=== PATIENT | female | born 1935 | race Two or more races ===

== ENCOUNTER 2017-11-07 21:30 | Inpatient (IN) | payer MEDICARE, MEDICAID ==
[~2017-11-07] VITALS: Ht 154.9 cm; Wt 57.6 kg
[~2017-11-07 21:30] MED LIST: ASPIRIN81 MG ORAL; BENAZEPRIL HCL10 MG ORAL; FERROUS SULFAT325 MG ORAL; GLIMEPIRIDE4 MG ORAL; GLIPIZIDE5 MG ORAL; GLYBURIDE-METF1 EAC1 PO; HECTOROL0.5 MCG PO; JANUVIA50 MG ORAL; LEVEMIR FL100 UNIT/1 SUBQ; LIPITOR80 MG ORAL; LOSARTAN-HCTZ1 EAC1 ORAL; NORVASC5 MG ORAL; OYSCO-500500 M1 PO; PENTOXIFYLLINE400 MG PO; PROBIOTIC1 EAC5 PO; RANITIDINE HCL150 MG ORAL; SIMVASTATIN5 MG ORAL; SODIUM BICARBO650 MG PO; TRADJENTA5 MG PO; VICODIN 5-5001 EACH ORAL; VITAMIN B122500 MCG PO
[2017-11-07] MEDS ORDERED: COZAAR50 MG ORAL (22:17)
[2017-11-07] MEDS ORDERED: FERROUS SULFAT325 MG ORAL (22:17)
[2017-11-07] MEDS ORDERED: TRADJENTA5 MG PO (22:17)
[2017-11-07] MEDS ORDERED: AMLODIPINE BESY10 MG ORAL (22:17)
[2017-11-07] MEDS ORDERED: TAMSULOSIN HCL0.4 MG ORAL (22:17)
[2017-11-07] MEDS ORDERED: DOCUSATE SODIU100 MG ORAL (22:17)
[2017-11-07 22:35] LABS: HEMATOCRIT 21.7 % (37.0-47.0); MEAN CORPUSCULAR VOLUME 100 FL (80-99); PLATELET COUNT 159 K/UL (150-450); RED BLOOD COUNT 2.18 M/UL (4.20-5.40); RED CELL DISTRIBUTION WIDTH 12.6 % (11.6-14.8); WHITE BLOOD COUNT 5.6 K/UL (4.8-10.8)
[2017-11-07] MEDS ORDERED: Miralax 17gm pkt ORAL PRN (22:45)
[2017-11-07] MEDS ORDERED: Albuterol/Ipratropium 3ml neb HHN PRN (22:45)
[2017-11-07] MEDS ORDERED: Zolpidem 5mg tab ORAL PRN (22:45)
[2017-11-07] MEDS ORDERED: Morphine Sulfate 2mg/ml Inj IVP PRN (22:45)
[2017-11-07] MEDS ORDERED: Mylanta II UD 30ml ORAL PRN (22:45)
[2017-11-07 22:56] LABS: ALANINE AMINOTRANSFERASE 14 U/L (12-78); ALBUMIN 3.4 G/DL (3.4-5.0); ALBUMIN/GLOBULIN RATIO 0.9 (1.0-2.7); ALKALINE PHOSPHATASE 131 U/L (46-116); ANION GAP 9 mmol/L (5-15); ASPARTATE AMINO TRANSFERASE 18 U/L (15-37); BILIRUBIN,TOTAL 0.3 MG/DL (0.2-1.0); BLOOD UREA NITROGEN 50 mg/dL (7-18); CALCIUM 8.3 MG/DL (8.5-10.1); CARBON DIOXIDE 19 MMOL/L (21-32); CHLORIDE 103 MMOL/L (98-107); CKMB 1.9 NG/ML (0.0-3.6); CREATINE KINASE 84 U/L (26-308); CREATININE 2.4 MG/DL (0.55-1.30); SODIUM 130 MMOL/L (136-145)
[2017-11-07 23:44] VITALS: BP 162/43
[2017-11-08] VITALS (7 sets, daily range): BP systolic 152–166; BP diastolic 42–81
--- NOTE | 2017-11-08 01:10 | Emergency Room Report ---
History of Present Illness General Chief Complaint: Abnormal Labs Source: Family Member Present Illness HPI 82-year-old female presents ED for evaluation. Daughter at bedside states that patient was referred here for abnormal labs. Had blood work done by PMD yesterday. Was called today stating that her hemoglobin was low and her potassium is high. Patient states she feels okay. Denies any fevers or chills. Denies any weakness. Denies chest pain or shortness of breath. Denies any dizziness. No other aggravating or relieving factors. Denies any other associated symptoms Allergies: Coded Allergies: No Known Allergies (Unverified , 05/29/13) Patient History Past Medical History: DM, HTN Past Surgical History: none Pertinent Family History: none Social History: Denies: smoking, alcohol use, drug use Now: No Immunizations: UTD Reviewed Nursing Documentation: PMH: Agreed, PSxH: Agreed Nursing Documentation-PMH Past Medical History: No History, Except For Hx Cardiac Problems: Yes Hx Hypertension: Yes Hx Diabetes: Yes - Type 2 Hx Cancer: No Hx Gastrointestinal Problems: No Hx Neurological Problems: No Review of Systems All Other Systems: negative except mentioned in HPI Physical Exam Vital Signs Date Time Temp Pulse Resp B/P (MAP) Pulse Ox O2 Delivery O2 Flow Rate FiO2 11/07/17 21:42 98.2 85 16 164/50 97 Room Air Sp02 EP Interpretation: reviewed, normal General Appearance: no apparent distress, alert, GCS 15, non-toxic Head: normocephalic, atraumatic Eyes: bilateral eye normal inspection, bilateral eye PERRL ENT: hearing grossly normal, normal pharynx, no angioedema, normal voice Neck: full range of motion, supple/symm/no masses Respiratory: chest non-tender, lungs clear, normal breath sounds, speaking full sentences Cardiovascular #1: regular rate, rhythm, no edema Cardiovascular #2: 2+ carotid (R), 2+ carotid (L), 2+ radial (R), 2+ radial (L) , 2+ dorsalis pedis (R), 2+ dorsalis pedis (L) Gastrointestinal: normal bowel sounds, non tender, soft, non-distended, no guarding, no rebound Rectal: deferred Genitourinary: normal inspection, no CVA tenderness Musculoskeletal: back normal, gait/station normal, normal range of motion, non- tender Neurologic: alert, oriented x3, responsive, motor strength/tone normal, sensory intact, speech normal Psychiatric: judgement/insight normal, memory normal, mood/affect normal, no suicidal/homicidal ideation Reflexes: 3+ bicep (R), 3+ bicep (L), 3+ tricep (R), 3+ tricep (L), 3+ knee (R) , 3+ knee (L) Skin: normal color, no rash, warm/dry, well hydrated Lymphatic: no adenopathy Medical Decision Making Diagnostic Impression: Primary Impression: Anemia Qualified Codes: D64.9 - Anemia, unspecified Additional Impressions: Hyperkalemia, diminished renal excretion Acute on chronic renal failure Qualified Codes: N17.9 - Acute kidney failure, unspecified; N18.9 - Chronic kidney disease, unspecified ER Course Hospital Course 82-year-old female referred here for low hemoglobin and high potassium Differential diagnoses include: OR/unstable angina, V. tach, bradycardia, hyperkalemia, fluid overload Clinical course Patient placed on stretcher. on hospital monitor. After initial history and physical I ordered labs, EKG labs reviewed- potassium 6.0. BUN/Cr elevated. Hemoglobin/hematocrit 7/21.7. Given insulin/D50. No EKG dynamic changes requiring calcium. Blood ordered. Case discussed with Dr. Stevens and he agreed to accept the patient to his service for further care and support I. I feel this is a highly complex case requiring extensive working including EKG/Rhythm strip, Xray/CT/US, Blood/urine lab work, repeat exams while in ED, and administration of strong opiates/narcotics for pain control, admission to hospital or close patient follow up. Diagnosis - hyperkalemia, anemia, acute on chronic kidney disease Admitted to telemetry in serious condition Labs Test 11/07/17 22:10 White Blood Count 5.6 K/UL (4.8-10.8) Red Blood Count 2.18 M/UL (4.20-5.40) Hemoglobin 7.0 G/DL (12.0-16.0) Hematocrit 21.7 % (37.0-47.0) Mean Corpuscular Volume 100 FL (80-99) Mean Corpuscular Hemoglobin 32.3 PG (27.0-31.0) Mean Corpuscular Hemoglobin Concent 32.4 G/DL (32.0-36.0) Red Cell Distribution Width 12.6 % (11.6-14.8) Platelet Count 159 K/UL (150-450) Mean Platelet Volume 7.1 FL (6.5-10.1) Neutrophils (%) (Auto) % (45.0-75.0) Lymphocytes (%) (Auto) % (20.0-45.0) Monocytes (%) (Auto) % (1.0-10.0) Eosinophils (%) (Auto) % (0.0-3.0) Basophils (%) (Auto) % (0.0-2.0) Differential Total Cells Counted 100 Neutrophils % (Manual) 50 % (45-75) Lymphocytes % (Manual) 35 % (20-45) Monocytes % (Manual) 6 % (1-10) Eosinophils % (Manual) 7 % (0-3) Basophils % (Manual) 2 % (0-2) Band Neutrophils 0 % (0-8) Platelet Estimate Adequate Platelet Morphology Normal Hypochromasia 1+ Anisocytosis 1+ Prothrombin Time 10.7 SEC (9.30-11.50) Prothromb Time International Ratio 1.0 (0.9-1.1) Activated Partial Thromboplast Time 31 SEC (23-33) Sodium Level 130 MMOL/L (136-145) Potassium Level 6.0 MMOL/L (3.5-5.1) Chloride Level 103 MMOL/L (98-107) Carbon Dioxide Level 19 MMOL/L (21-32) Anion Gap 9 mmol/L (5-15) Blood Urea Nitrogen 50 mg/dL (7-18) Creatinine 2.4 MG/DL (0.55-1.30) Estimat Glomerular Filtration Rate mL/min (>60) Glucose Level 186 MG/DL (74-106) Calcium Level 8.3 MG/DL (8.5-10.1) Total Bilirubin 0.3 MG/DL (0.2-1.0) Aspartate Amino Transf (AST/SGOT) 18 U/L (15-37) Alanine Aminotransferase (ALT/SGPT) 14 U/L (12-78) Alkaline Phosphatase 131 U/L (46-116) Total Creatine Kinase 84 U/L (26-308) Creatine Kinase MB 1.9 NG/ML (0.0-3.6) Creatine Kinase MB Relative Index 2.2 Troponin I < 0.017 ng/mL (0.000-0.056) Pro-B-Type Natriuretic Peptide 6117 pg/mL (0-125) Total Protein 7.0 G/DL (6.4-8.2) Albumin 3.4 G/DL (3.4-5.0) Globulin 3.6 g/dL Albumin/Globulin Ratio 0.9 (1.0-2.7) EKG Diagnostic Results Rate: normal Rhythm: NSR ST Segments: no acute changes ASA given to the pt in ED: No Rhythm Strip Diag. Results EP Interpretation: yes Rhythm: NSR, no PVC's, no ectopy Chest X-Ray Diagnostic Results Chest X-Ray Diagnostic Results : Chest X-Ray Ordered: Yes # of Views/Limited/Complete: 1 View Indication: Other EP Interpretation: Yes Interpretation: no pneumothorax, no acute cardiopulmonary disease, other - bilateral insterstitial changes Impression: Other - cardiomegaly Electronically Signed by: Electronically signed by Jon Curtis MD Last Vital Signs Date Time Temp Pulse Resp B/P (MAP) Pulse Ox O2 Delivery O2 Flow Rate FiO2 11/07/17 23:44 97.7 81 24 162/43 100 Room Air Status: improved Disposition: ADMITTED INPATIENT Condition: Serious Referrals: NOT CHOSEN MITALI/,REFERRING (PCP) JON CURTIS M.D. Nov 08, 2017 01:10
[2017-11-08] MEDS: NovoLOG Insulin Flexpen SUBQ SCH ×4 (06:30→21:23)
[2017-11-08] MEDS: sitaGLIPtin 50mg tab ORAL SCH (07:03)
--- NOTE | 2017-11-08 08:26 | History and Physical ---
History of Present Illness General Date patient seen: Nov 08, 2017 Reason for Hospitalization: Abnormal Labs Present Illness HPI 82-year-old female with hx of HTN, DM presented to ED for evaluation of abnormal labs. Had blood work done by PMD showed that her hemoglobin was low and her potassium is high. Patient states she feels okay. Denies any fevers or chills. Denies any weakness. Denies chest pain or shortness of breath. Denies any dizziness. No other aggravating or relieving factors. Allergies: Coded Allergies: No Known Allergies (Unverified , 05/29/13) Medication History Scheduled Amlodipine Besylate (Norvasc), 5 MG ORAL BID Amlodipine Besylate* (Amlodipine Besylate*), 10 MG ORAL DAILY, (Reported) Aspirin* (Aspirin*), 81 MG ORAL DAILY, (Reported) Atorvastatin (Lipitor), 80 MG ORAL DAILY, (Reported) Calcium Carbonate (Oysco-500), 500 MG PO BID, (Reported) Ferrous Sulfate* (Ferrous Sulfate*), 325 MG ORAL THREE TIMES A DAY, (Reported) Ferrous Sulfate* (Ferrous Sulfate*), 325 MG ORAL TWICE A DAY, (Reported) Glimepiride* (Glimepiride*), 4 MG ORAL DAILY, (Reported) Glipizide* (Glipizide*), 5 MG ORAL BIDAC, (Reported) Linagliptin (Tradjenta), 5 MG PO DAILY, (Reported) Linagliptin (Tradjenta), 5 MG PO DAILY, (Reported) Losartan Potassium* (Cozaar*), 100 MG ORAL DAILY, (Reported) Losartan/Hydrochlorothiazide (Losartan-Hctz 100-25 Mg Tab), 1 TAB ORAL DAILY, ( Reported) Pentoxifylline* (Trental*), 400 MG PO TID, (Reported) Ranitidine Hcl* (Zantac*), 150 MG ORAL BEDTIME Simvastatin (Zocor), 5 MG ORAL BEDTIME, (Reported) Sitagliptin (Januvia), 50 MG ORAL ACBREAKFAST Sodium Bicarbonate* (Nahco3*), 650 MG PO TID, (Reported) Tamsulosin Hcl (Tamsulosin Hcl*), 0.4 MG ORAL BEDTIME, (Reported) Scheduled PRN Hydrocodone/Acetaminophen 5-500 (Vicodin 5-500), 1 TAB ORAL Q8H PRN for For Pain Miscellaneous Medications Cyanocobalamin (Vitamin B-12) (Vitamin B12), 500 MCG PO, (Reported) Docusate Sodium* (Docusate Sodium*), 100 MG ORAL, (Reported) Doxercalciferol (Hectorol), 0.5 MCG PO, (Reported) Insulin Detemir (Levemir Flexpen), 0 SUBQ, (Reported) Lactobacillus Combo No.11 (Probiotic), 1 EACH PO, (Reported) Patient History Healthcare decision maker Resuscitation status Full Code Advanced Directive on File Past Medical/Surgical History Past Medical/Surgical History: (1) HTN (hypertension) (2) Diabetic nephropathy (3) Elevated CEA Review of Systems Constitutional: Reports: malaise, weakness All Other Systems: negative except mentioned in HPI Physical Exam General Appearance: WD/WN Lines, tubes and drains: peripheral HEENT: normocephalic, atraumatic Neck: non-tender, normal alignment Respiratory/Chest: chest wall non-tender, lungs clear Breasts: no masses Cardiovascular/Chest: normal peripheral pulses, normal rate Abdomen: normal bowel sounds, soft Genitourinary/Rectal: normal genital exam Extremities: normal range of motion 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 Last 24 Hour Vital Signs Date Time Temp Pulse Resp B/P (MAP) Pulse Ox O2 Delivery O2 Flow Rate FiO2 11/08/17 08:00 97.3 80 18 158/73 95 Room Air 11/08/17 03:30 98.2 81 21 165/81 98 Room Air 11/08/17 03:20 97.7 80 19 163/52 100 Room Air 11/08/17 03:05 98.2 81 21 11/08/17 03:05 98.2 81 21 165/81 98 Room Air 11/08/17 01:22 77 15 152/42 100 Room Air 11/07/17 23:44 97.7 81 24 162/43 100 Room Air 11/07/17 21:42 98.2 85 16 164/50 97 Room Air Intake and Output 11/07/17 11/08/17 19:00 07:00 Output Total 0 ml Balance 0 ml Output Urine Total 0 ml # Voids 1 Laboratory Tests Test 11/07/17 22:10 White Blood Count 5.6 K/UL (4.8-10.8) Red Blood Count 2.18 M/UL (4.20-5.40) L Hemoglobin 7.0 G/DL (12.0-16.0) L Hematocrit 21.7 % (37.0-47.0) L Mean Corpuscular Volume 100 FL (80-99) H Mean Corpuscular Hemoglobin 32.3 PG (27.0-31.0) H Mean Corpuscular Hemoglobin Concent 32.4 G/DL (32.0-36.0) Red Cell Distribution Width 12.6 % (11.6-14.8) Platelet Count 159 K/UL (150-450) Mean Platelet Volume 7.1 FL (6.5-10.1) Neutrophils (%) (Auto) % (45.0-75.0) Lymphocytes (%) (Auto) % (20.0-45.0) Monocytes (%) (Auto) % (1.0-10.0) Eosinophils (%) (Auto) % (0.0-3.0) Basophils (%) (Auto) % (0.0-2.0) Differential Total Cells Counted 100 Neutrophils % (Manual) 50 % (45-75) Lymphocytes % (Manual) 35 % (20-45) Monocytes % (Manual) 6 % (1-10) Eosinophils % (Manual) 7 % (0-3) H Basophils % (Manual) 2 % (0-2) Band Neutrophils 0 % (0-8) Platelet Estimate Adequate Platelet Morphology Normal Hypochromasia 1+ Anisocytosis 1+ Prothrombin Time 10.7 SEC (9.30-11.50) Prothromb Time International Ratio 1.0 (0.9-1.1) Activated Partial Thromboplast Time 31 SEC (23-33) Sodium Level 130 MMOL/L (136-145) L Potassium Level 6.0 MMOL/L (3.5-5.1) *H Chloride Level 103 MMOL/L (98-107) Carbon Dioxide Level 19 MMOL/L (21-32) L Anion Gap 9 mmol/L (5-15) Blood Urea Nitrogen 50 mg/dL (7-18) H Creatinine 2.4 MG/DL (0.55-1.30) H Estimat Glomerular Filtration Rate mL/min (>60) Glucose Level 186 MG/DL (74-106) H Calcium Level 8.3 MG/DL (8.5-10.1) L Total Bilirubin 0.3 MG/DL (0.2-1.0) Aspartate Amino Transf (AST/SGOT) 18 U/L (15-37) Alanine Aminotransferase (ALT/SGPT) 14 U/L (12-78) Alkaline Phosphatase 131 U/L (46-116) H Total Creatine Kinase 84 U/L (26-308) Creatine Kinase MB 1.9 NG/ML (0.0-3.6) Creatine Kinase MB Relative Index 2.2 Troponin I < 0.017 ng/mL (0.000-0.056) Pro-B-Type Natriuretic Peptide 6117 pg/mL (0-125) H Total Protein 7.0 G/DL (6.4-8.2) Albumin 3.4 G/DL (3.4-5.0) Globulin 3.6 g/dL Albumin/Globulin Ratio 0.9 (1.0-2.7) L Height (Feet): 5 Height (Inches): 1.00 Weight (Pounds): 127 Medications Current Medications Medications (Trade) Dose Ordered Sig/Murali Route PRN Reason Start Time Stop Time Status Last Admin Dose Admin Acetaminophen (Tylenol) 650 mg Q4H PRN ORAL fever 11/07/17 22:45 12/07/17 22:44 Al Hydroxide/Mg Hydroxide (Mylanta II) 30 ml Q6H PRN ORAL dyspepsia 11/07/17 22:45 12/07/17 22:44 Albuterol/ Ipratropium (Albuterol/ Ipratropium) 3 ml Q6HRT PRN HHN dyspnea 11/07/17 22:45 11/12/17 22:44 Amlodipine Besylate (Norvasc) 5 mg BID ORAL 11/08/17 09:00 12/08/17 08:59 Aspirin (ASA) 81 mg DAILY ORAL 11/08/17 09:00 12/08/17 08:59 Clonidine HCl (Catapres Tab) 0.1 mg Q4H PRN ORAL For High Blood Pressure 11/07/17 22:45 12/07/17 22:44 Dextrose (Dextrose 50%) STAT PRN IV Hypoglycemia 11/07/17 22:45 12/07/17 22:44 Dextrose (Dextrose 50%) STAT PRN IV Hypoglycemia 11/07/17 22:45 12/07/17 22:44 Heparin Sodium (Porcine) (Heparin 5000 units/ml) 5,000 units EVERY 12 HOURS SUBQ 11/08/17 09:00 12/08/17 08:59 Insulin Aspart (NovoLOG) BEFORE MEALS AND HS SUBQ 11/08/17 06:30 12/08/17 06:29 Morphine Sulfate (Morphine Sulfate) 1 mg EVERY 4 HOURS PRN IVP For Pain 11/07/17 22:45 11/14/17 22:44 Ondansetron HCl (Zofran) 4 mg Q6H PRN IVP Nausea & Vomiting 11/07/17 22:45 12/07/17 22:44 Polyethylene Glycol (Miralax) 17 gm HSPRN PRN ORAL Constipation 11/07/17 22:45 12/07/17 22:44 Sitagliptin Phosphate (Januvia) 50 mg ACBREAKFAST ORAL 11/08/17 06:30 12/08/17 06:29 11/08/17 07:03 Sodium Polystyrene Sulfonate (Kayexalate) 45 gm DAILY ORAL 11/08/17 09:00 11/11/17 08:59 Tamsulosin HCl (Flomax) 0.4 mg BEDTIME ORAL 11/08/17 21:00 12/08/17 20:59 Zolpidem Tartrate (Ambien) 5 mg HSPRN PRN ORAL Insomnia 11/07/17 22:45 11/14/17 22:44 Assessment/Plan Problem List: (1) Acute on chronic renal failure ICD Codes: N17.9 - Acute kidney failure, unspecified; N18.9 - Chronic kidney disease, unspecified SNOMED: 142033936 Qualifiers: Qualified Codes: N17.9 - Acute kidney failure, unspecified; N18.9 - Chronic kidney disease, unspecified (2) Anemia ICD Codes: D64.9 - Anemia, unspecified SNOMED: 159390947 Qualifiers: Qualified Codes: D64.9 - Anemia, unspecified (3) ATN (acute tubular necrosis) ICD Codes: N17.0 - Acute kidney failure with tubular necrosis SNOMED: 65435454 (4) Diabetic nephropathy ICD Codes: E11.21 - Type 2 diabetes mellitus with diabetic nephropathy SNOMED: 424164660 (5) Elevated CEA ICD Codes: R97.0 - Elevated carcinoembryonic antigen [CEA] SNOMED: 00849411, 598143368 Assessment/Plan rule out GI bleeding kayexalate, IV fluids renal US OB of stool prbc as needed sliding scale and diabetic diet dvt porphylaxis JM COLON Nov 08, 2017 08:26
[2017-11-08] MEDS: Aspirin Baby 81mg ORAL SCH (08:56)
[2017-11-08] MEDS: Heparin 5000 units/ml inj SUBQ SCH ×2 (08:59→21:00)
[2017-11-08] MEDS ORDERED: Sodium Polystyrene Sulfonate 15gm Powder ORAL SCH (09:00)
--- NOTE | 2017-11-08 10:04 | Diagnostic Imaging Report ---
Indication: Pain Technique: XRAY Chest 1v Comparison: 06/02/2016 Findings: Heart is enlarged. Atherosclerotic calcifications noted in the aorta. There is mild interstitial prominence. There is suggestion of bronchial thickening. There is linear atelectasis/scarring in the left lower lung peripherally. There is patchy opacity at the left base. There is blunting of the left costophrenic sulcus. No pneumothorax. Degenerative changes are noted in the spine. No acute osseous abnormality appreciated. Impression: Cardiomegaly. Mild interstitial prominence with suggestion of bronchial wall thickening. Patchy left basilar opacities centimeters atelectasis. Developing pneumonia is not entirely excluded. Clinical correlation and follow-up exam recommended. Study obtained via the emergency department however patient admitted to the hospital at time of dictation of the final report.
--- NOTE | 2017-11-08 11:46 | Consultation ---
Consult Note Consult Note asked to eval for renal failure- 82-year-old female presents ED for evaluation. Daughter at bedside states that patient was referred here for abnormal labs. Had blood work done by PMD yesterday. Was called today stating that her hemoglobin was low and her potassium is high. Patient states she feels okay. Denies any fevers or chills. Denies any weakness. Denies chest pain or shortness of breath. Denies any dizziness. No other aggravating or relieving factors. Denies any other associated symptoms Past Medical History: DM, HTN Hx Cardiac Problems: Yes Hx Hypertension: Yes Hx Diabetes: Yes - Type 2 patient interviewed via daughters data reviewed examined discussed with RN . Assessment/Plan Status: Diabetic nephropathy CKD , Cr 1.9 .....(2 years ago) HTN (hypertension) Sever Anemia Acute on chronic renal failure HypoNatremia Plan: Sims 2D echo Kidney ALESSANDRA urine studies- avoid Nephrotoxics Monitor renal parameters LARA WILSON Nov 08, 2017 11:46
[2017-11-08 13:39] LABS: APPEARANCE,URINE SLIGHTLY CLOUDY; COLOR,URINE PALE YELLOW
[2017-11-08 13:40] LABS: BILIRUBIN, URINE NEGATIVE (NEGATIVE); GLUCOSE, URINE (UA) NEGATIVE (NEGATIVE); KETONES,URINE NEGATIVE (NEGATIVE); NITRITE,URINE NEGATIVE (NEGATIVE); PH,URINE 6.5 (4.5-8.0); PROTEIN,URINE 3+ (NEGATIVE)
[2017-11-08 13:41] LABS: LEUKOCYTE ESTERASE ,URINE 2+ (NEGATIVE); UROBILINOGEN,URINE NORMAL MG/DL (0.0-1.0)
--- NOTE | 2017-11-08 14:21 | Cardiology Report ---
APPROVED REPORT EXAM: Two-dimensional and M-mode echocardiogram with Doppler and color Doppler. INDICATION Congestive Heart Failure M-Mode DIMENSIONS IVSd1.4 (0.7-1.1cm)Left Atrium (MM)4.5 (1.6-4.0cm) LVDd5.0 (3.5-5.6cm)Aortic Root3.5 (2.0-3.7cm) PWd1.6 (0.7-1.1cm)Aortic Cusp Exc.1.7 (1.5-2.0cm) IVSs1.9 cm LVDs3.4 (2.5-4.0cm) PWs1.7 cm Normal left ventricular chamber size, systolic function and wall motion. Left ventricular ejection fraction estimated to be 60-65 %. Mild left ventricular hypertrophy by 2-D. No evidence of pericardial effusion Mild Left atrial enlargement. Right cardiac chamber sizes are within normal limits. Focal aortic valve sclerosis with adequate cusp excursion. Thickened mitral valve leaflets with normal excursion. Mitral annulus and aortic root calcification. Normal pulmonic valve structure . Normal tricuspid valve structure. Subcostal views are not obtained due to pts hernia . A color flow and spectral Doppler study was performed and revealed: Trace aortic regurgitation. Mild to moderate mitral regurgitation. Normal left ventricular diastolic function . Trace tricuspid regurgitation. Tricuspid systolic velocities suggests peak right ventricular systolic pressure of 25 mmHg No Pulmonic regurgitation present.
[2017-11-08] MEDS ORDERED: NS 500ML ONE (16:37)
[2017-11-08] MEDS ORDERED: Tubing IV Secondary IV ONE (16:37)
[2017-11-08 16:38] LABS: BASOPHILS % (AUTO) 1.8 % (0.0-2.0); EOSINOPHILS % (AUTO) 4.9 % (0.0-3.0); HEMATOCRIT 28.1 % (37.0-47.0); HEMOGLOBIN 9.7 G/DL (12.0-16.0); LYMPHOCYTES % (AUTO) 26.6 % (20.0-45.0); MEAN CORPUSCULAR VOLUME 96 FL (80-99); MONOCYTES % (AUTO) 8.5 % (1.0-10.0); NEUTROPHILS % (AUTO) 58.2 % (45.0-75.0); PLATELET COUNT 132 K/UL (150-450); RED BLOOD COUNT 2.92 M/UL (4.20-5.40)
[2017-11-08 17:08] LABS: ALANINE AMINOTRANSFERASE 12 U/L (12-78); ALBUMIN 3.1 G/DL (3.4-5.0); ALBUMIN/GLOBULIN RATIO 0.8 (1.0-2.7); ALKALINE PHOSPHATASE 99 U/L (46-116); ANION GAP 11 mmol/L (5-15); ASPARTATE AMINO TRANSFERASE 21 U/L (15-37); BILIRUBIN,TOTAL 0.6 MG/DL (0.2-1.0); BLOOD UREA NITROGEN 43 mg/dL (7-18); CALCIUM 7.9 MG/DL (8.5-10.1); CARBON DIOXIDE 16 MMOL/L (21-32); CHLORIDE 107 MMOL/L (98-107); CHOLESTEROL 82 MG/DL (< 200); CREATININE 2.1 MG/DL (0.55-1.30); HDL CHOLESTEROL 42 MG/DL (40-60); POTASSIUM 5.4 MMOL/L (3.5-5.1); SODIUM 134 MMOL/L (136-145); TRIGLYCERIDES 54 MG/DL (30-150)
[2017-11-08] MEDS ORDERED: Tamsulosin 0.4mg cap ORAL SCH (21:00)
--- NOTE | 2017-11-08 21:15 | Consultation ---
DATE OF CONSULTATION: 11/08/2017 ENDOCRINOLOGY CONSULTATION REFERRING PHYSICIAN: Flora Stevens M.D. REASON FOR CONSULTATION: Diabetic management. HISTORY OF PRESENT ILLNESS: The patient is an 82-year-old female with history of diabetes and chronic kidney disease. Diabetes as an outpatient managed by Tradjenta and glimepiride. She presents to the hospital with abnormal lab hyperkalemia with potassium of 6 and severe anemia. The patient was admitted with observation and treatment and I was called to manage diabetes. PAST MEDICAL HISTORY: 1. Type 2 diabetes. 2. Hypertension. 3. CKD. MEDICATIONS AT HOME: Reviewed and reconciled. ALLERGIES TO MEDICATIONS: None. REVIEW OF SYSTEMS: As per history of present illness. PHYSICAL EXAMINATION: GENERAL: She is awake and alert. VITAL SIGNS: Blood pressure 158/73, heart rate 80, respiratory rate 18, and temperature of 97.3 degrees. HEENT: Pupils are equal and reactive to light. Sclerae anicteric. NECK: No JVD. HEART: Regular. LUNGS: Clear. ABDOMEN: Positive bowel sounds. EXTREMITIES: Trace edema. LABORATORY VALUES: WBC 5, hemoglobin 7, hematocrit 21, and platelets of 159,000. Sodium 130, potassium 6, chloride 103, bicarbonate 19, BUN 50, creatinine 3.4, and glucose 186. DIAGNOSES: 1. Anemia. 2. Hyperkalemia. 3. Diabetes. 4. Chronic kidney disease. PLAN: 1. Discontinue sulfonylurea. 2. Continue Januvia 50 mg renal dose. 3. Continued insulin sliding scale. 4. Further adjustment according to blood glucose values. Thank you, Dr. Stevens for the courtesy of this consultation. Solo Lombardi M.D. DR: Dez JOB#: [id number] CC: JUAN
[2017-11-09] VITALS: BP 150/70
[2017-11-09 04:00] VITALS: BP 161/77
[2017-11-09] MEDS: sitaGLIPtin 50mg tab ORAL SCH (06:28)
[2017-11-09] MEDS: NovoLOG Insulin Flexpen SUBQ SCH ×4 (06:30→21:42)
[2017-11-09 08:00] VITALS: BP 153/70
--- NOTE | 2017-11-09 08:04 | General Progress Note ---
Assessment/Plan Problem List: (1) Abnormal thyroid blood test ICD Codes: R94.6 - Abnormal results of thyroid function studies SNOMED: 932407323 (2) Diabetes ICD Codes: E11.9 - Type 2 diabetes mellitus without complications SNOMED: 45625420 (3) ACS (acute coronary syndrome) ICD Codes: I24.9 - Acute ischemic heart disease, unspecified SNOMED: 310632794 (4) HTN (hypertension) ICD Codes: I10 - Essential (primary) hypertension SNOMED: 31512381 (5) Diabetic nephropathy ICD Codes: E11.21 - Type 2 diabetes mellitus with diabetic nephropathy SNOMED: 602171004 Assessment/Plan continue Januvia 50 mg daily continue NISS repeat thyroid function: TSH , free T4 Subjective Allergies: Coded Allergies: No Known Allergies (Unverified , 05/29/13) All Systems: reviewed and negative except above Subjective events noted - interval notes reviewed TSH is mildly elevated Item Value Date Time Bedside Blood Glucose 105 mg/dl 11/09/17 0630 Bedside Blood Glucose 145 mg/dl H 11/08/17 2123 Bedside Blood Glucose 83 mg/dl 11/08/17 1630 Bedside Blood Glucose 147 mg/dl H 11/08/17 1158 Bedside Blood Glucose 86 mg/dl 11/08/17 0630 Objective Last 24 Hour Vital Signs Date Time Temp Pulse Resp B/P (MAP) Pulse Ox O2 Delivery O2 Flow Rate FiO2 11/09/17 07:50 62 18 Room Air 21 11/09/17 07:10 61 18 Room Air 21 11/09/17 04:21 161/77 11/09/17 04:00 98.2 88 20 161/77 97 Room Air 11/09/17 04:00 64 11/09/17 00:00 64 11/09/17 00:00 98.1 89 18 150/70 97 Room Air 11/08/17 21:40 166/74 11/08/17 20:00 77 11/08/17 20:00 98.2 77 20 166/74 96 Room Air 11/08/17 19:30 80 20 Room Air 21 11/08/17 17:52 82 165/72 11/08/17 16:00 98.4 82 18 165/75 96 Room Air 11/08/17 16:00 76 11/08/17 12:00 77 11/08/17 12:00 98.2 74 18 154/70 97 Room Air 11/08/17 08:57 68 158/73 11/08/17 08:25 68 20 Room Air Intake and Output 11/08/17 11/09/17 19:00 07:00 Intake Total 1424 ml Output Total 200 ml 800 ml Balance 1224 ml -800 ml Intake Oral 240 ml IV Total 1184 ml Output Urine Total 200 ml 800 ml Laboratory Tests 11/08/17 12:20: Urine Color Pale yellow, Urine Appearance Slightly cloudy, Urine pH 6.5, Urine Specific [place] 1.010, Urine Protein 3+H, Urine Glucose (UA) Negative, Urine Ketones Negative, Urine Occult Blood 3+H, Urine Nitrite Negative, Urine Bilirubin Negative, Urine Urobilinogen Normal, Urine Leukocyte Esterase 2+H, Urine RBC 10-15H, Urine WBC 20-30H, Urine Squamous Epithelial Cells Few, Urine Bacteria ManyH, Urine Random Sodium 55 11/08/17 15:51: White Blood Count 6.0, Red Blood Count 2.92L, Hemoglobin 9.7#L, Hematocrit 28.1L , Mean Corpuscular Volume 96, Mean Corpuscular Hemoglobin 33.2H, Mean Corpuscular Hemoglobin Concent 34.5, Red Cell Distribution Width 13.0, Platelet Count 132L, Mean Platelet Volume 7.3, Neutrophils (%) (Auto) 58.2, Lymphocytes ( %) (Auto) 26.6, Monocytes (%) (Auto) 8.5, Eosinophils (%) (Auto) 4.9H, Basophils (%) (Auto) 1.8, Sodium Level 134L, Potassium Level 5.4H, Chloride Level 107, Carbon Dioxide Level 16L, Anion Gap 11, Blood Urea Nitrogen 43H, Creatinine 2.1H, Estimat Glomerular Filtration Rate , Glucose Level 72#L, Hemoglobin A1c 6.6H, Calcium Level 7.9L, Total Bilirubin 0.6, Aspartate Amino Transf (AST/SGOT) 21, Alanine Aminotransferase (ALT/SGPT) 12, Alkaline Phosphatase 99, C-Reactive Protein, Quantitative < 0.4, Total Protein 6.9, Albumin 3.1L, Globulin 3.8, Albumin/Globulin Ratio 0.8L, Triglycerides Level 54 , Cholesterol Level 82, LDL Cholesterol 35, HDL Cholesterol 42, Cholesterol/HDL Ratio 2.0L, Thyroid Stimulating Hormone (TSH) 5.215H 11/09/17 06:40: White Blood Count [Pending], Red Blood Count [Pending], Hemoglobin [Pending], Hematocrit [Pending], Mean Corpuscular Volume [Pending], Mean Corpuscular Hemoglobin [Pending], Mean Corpuscular Hemoglobin Concent [Pending], Red Cell Distribution Width [Pending], Platelet Count [Pending], Mean Platelet Volume [ Pending], Neutrophils (%) (Auto) [Pending], Lymphocytes (%) (Auto) [Pending], Monocytes (%) (Auto) [Pending], Eosinophils (%) (Auto) [Pending], Basophils (%) (Auto) [Pending], Sodium Level [Pending], Potassium Level [Pending], Chloride Level [Pending], Carbon Dioxide Level [Pending], Blood Urea Nitrogen [Pending], Creatinine [Pending], Estimat Glomerular Filtration Rate [Pending], Glucose Level [Pending], Calcium Level [Pending], Total Bilirubin [Pending], Aspartate Amino Transf (AST/SGOT) [Pending], Alanine Aminotransferase (ALT/SGPT) [Pending] , Alkaline Phosphatase [Pending], Total Protein [Pending], Albumin [Pending], Globulin [Pending], Uric Acid [Pending], Phosphorus Level [Pending], Magnesium Level [Pending], Pro-B-Type Natriuretic Peptide [Pending] Height (Feet): 5 Height (Inches): 1.00 Weight (Pounds): 127 General Appearance: no apparent distress Neck: normal alignment Cardiovascular: regular rhythm Respiratory/Chest: lungs clear Abdomen: normal bowel sounds Pelvis: normal external exam Edema: 1+ Arm (L), 1+ Arm (R), 1+ Leg (L), 1+ Leg (R), 1+ Pedal (L), 1+ Pedal ( R), 1+ Generalized Objective Current Medications Medications (Trade) Dose Ordered Sig/Murali Route PRN Reason Start Time Stop Time Status Last Admin Dose Admin Acetaminophen (Tylenol) 650 mg Q4H PRN ORAL fever 11/07/17 22:45 12/07/17 22:44 Albuterol/ Ipratropium (Albuterol/ Ipratropium) 3 ml Q6HRT PRN HHN dyspnea 11/07/17 22:45 11/12/17 22:44 Amlodipine Besylate (Norvasc) 5 mg BID ORAL 11/08/17 09:00 12/08/17 08:59 11/08/17 17:52 Aspirin (ASA) 81 mg DAILY ORAL 11/08/17 09:00 12/08/17 08:59 11/08/17 08:56 Clonidine HCl (Catapres Tab) 0.1 mg Q4H PRN ORAL For High Blood Pressure 11/07/17 22:45 12/07/17 22:44 11/09/17 04:21 Dextrose (Dextrose 50%) STAT PRN IV Hypoglycemia 11/07/17 22:45 12/07/17 22:44 Heparin Sodium (Porcine) (Heparin 5000 units/ml) 5,000 units EVERY 12 HOURS SUBQ 11/08/17 09:00 12/08/17 08:59 11/08/17 08:59 Insulin Aspart (NovoLOG) BEFORE MEALS AND HS SUBQ 11/08/17 06:30 12/08/17 06:29 11/08/17 21:23 Lansoprazole (Prevacid) 30 mg DAILY ORAL 11/08/17 12:30 12/08/17 12:29 11/08/17 12:40 Morphine Sulfate (Morphine Sulfate) 1 mg EVERY 4 HOURS PRN IVP For Pain 11/07/17 22:45 11/14/17 22:44 Ondansetron HCl (Zofran) 4 mg Q6H PRN IVP Nausea & Vomiting 11/07/17 22:45 12/07/17 22:44 Polyethylene Glycol (Miralax) 17 gm HSPRN PRN ORAL Constipation 11/07/17 22:45 12/07/17 22:44 Sitagliptin Phosphate (Januvia) 50 mg ACBREAKFAST ORAL 11/08/17 06:30 12/08/17 06:29 11/09/17 06:28 Zolpidem Tartrate (Ambien) 5 mg HSPRN PRN ORAL Insomnia 11/07/17 22:45 11/14/17 22:44 MERISSA PADILLA Nov 09, 2017 08:04
[2017-11-09 08:11] LABS: BASOPHILS % (AUTO) 1.3 % (0.0-2.0); EOSINOPHILS % (AUTO) 5.8 % (0.0-3.0); HEMATOCRIT 28.4 % (37.0-47.0); HEMOGLOBIN 9.4 G/DL (12.0-16.0); LYMPHOCYTES % (AUTO) 28.5 % (20.0-45.0); MEAN CORPUSCULAR VOLUME 97 FL (80-99); MONOCYTES % (AUTO) 9.6 % (1.0-10.0); NEUTROPHILS % (AUTO) 54.8 % (45.0-75.0); PLATELET COUNT 152 K/UL (150-450); RED BLOOD COUNT 2.93 M/UL (4.20-5.40); RED CELL DISTRIBUTION WIDTH 13.3 % (11.6-14.8); WHITE BLOOD COUNT 5.3 K/UL (4.8-10.8)
[2017-11-09] MEDS: Aspirin Baby 81mg ORAL SCH (08:23)
[2017-11-09] MEDS: Heparin 5000 units/ml inj SUBQ SCH ×2 (08:24→21:43)
[2017-11-09 08:31] LABS: ALANINE AMINOTRANSFERASE 14 U/L (12-78); ALBUMIN 2.6 G/DL (3.4-5.0); ALBUMIN/GLOBULIN RATIO 0.7 (1.0-2.7); ALKALINE PHOSPHATASE 88 U/L (46-116); ANION GAP 9 mmol/L (5-15); ASPARTATE AMINO TRANSFERASE 18 U/L (15-37); BILIRUBIN,TOTAL 0.6 MG/DL (0.2-1.0); BLOOD UREA NITROGEN 39 mg/dL (7-18); CALCIUM 7.7 MG/DL (8.5-10.1); CARBON DIOXIDE 18 MMOL/L (21-32); CHLORIDE 109 MMOL/L (98-107); CREATININE 2.1 MG/DL (0.55-1.30); PHOSPHORUS 4.6 MG/DL (2.5-4.9); SODIUM 136 MMOL/L (136-145)
--- NOTE | 2017-11-09 09:52 | Diagnostic Imaging Report ---
Indication:Elevated Bun and Creatinine. Technique: Grayscale and duplex Doppler imaging of the kidneys performed. Comparison: None Findings: Visualization is very limited on this study. Both kidneys appear small but are probably underestimated in size with the right kidney 7.3 cm left kidney 6.5 cm. There is no hydronephrosis. Aorta and IVC are not seen. Bladder is nondistended. Sims catheter is present. IMPRESSION: Very limited study due to body habitus and bowel gas. No obvious hydronephrosis. Kidneys appear small.
--- NOTE | 2017-11-09 11:16 | Nephrology Progress Note ---
Assessment/Plan Problem List: (1) Diabetic nephropathy (2) Acute kidney injury superimposed on CKD (3) Hypoalbuminemia (4) Anemia Assessment Status: Diabetic nephropathy CKD , Cr 1.9 .....(2 years ago) Cr stable 2.1 HTN (hypertension) Sever Anemia Acute on chronic renal failure HypoNatremia improved . Plan Sims 2D echo noted Kidney ALESSANDRA noted urine studies- avoid Nephrotoxics Monitor renal parameters Subjective ROS Limited/Unobtainable: No Constitutional: Reports: malaise, other - stronger Objective Objective Last 24 Hour Vital Signs Date Time Temp Pulse Resp B/P (MAP) Pulse Ox O2 Delivery O2 Flow Rate FiO2 11/09/17 08:23 64 153/70 11/09/17 08:00 97.9 64 20 153/70 98 Room Air 11/09/17 08:00 60 11/09/17 07:50 62 18 Room Air 21 11/09/17 07:10 61 18 Room Air 21 11/09/17 04:21 161/77 11/09/17 04:00 98.2 88 20 161/77 97 Room Air 11/09/17 04:00 64 11/09/17 00:00 64 11/09/17 00:00 98.1 89 18 150/70 97 Room Air 11/08/17 21:40 166/74 11/08/17 20:00 77 11/08/17 20:00 98.2 77 20 166/74 96 Room Air 11/08/17 19:30 80 20 Room Air 21 11/08/17 17:52 82 165/72 11/08/17 16:00 98.4 82 18 165/75 96 Room Air 11/08/17 16:00 76 11/08/17 12:00 77 11/08/17 12:00 98.2 74 18 154/70 97 Room Air Intake and Output 11/08/17 11/09/17 19:00 07:00 Intake Total 1424 ml Output Total 200 ml 800 ml Balance 1224 ml -800 ml Intake Oral 240 ml IV Total 1184 ml Output Urine Total 200 ml 800 ml Laboratory Tests 11/08/17 12:20: Urine Color Pale yellow, Urine Appearance Slightly cloudy, Urine pH 6.5, Urine Specific [place] 1.010, Urine Protein 3+H, Urine Glucose (UA) Negative, Urine Ketones Negative, Urine Occult Blood 3+H, Urine Nitrite Negative, Urine Bilirubin Negative, Urine Urobilinogen Normal, Urine Leukocyte Esterase 2+H, Urine RBC 10-15H, Urine WBC 20-30H, Urine Squamous Epithelial Cells Few, Urine Bacteria ManyH, Urine Random Sodium 55 11/08/17 15:51: White Blood Count 6.0, Red Blood Count 2.92L, Hemoglobin 9.7#L, Hematocrit 28.1L , Mean Corpuscular Volume 96, Mean Corpuscular Hemoglobin 33.2H, Mean Corpuscular Hemoglobin Concent 34.5, Red Cell Distribution Width 13.0, Platelet Count 132L, Mean Platelet Volume 7.3, Neutrophils (%) (Auto) 58.2, Lymphocytes ( %) (Auto) 26.6, Monocytes (%) (Auto) 8.5, Eosinophils (%) (Auto) 4.9H, Basophils (%) (Auto) 1.8, Sodium Level 134L, Potassium Level 5.4H, Chloride Level 107, Carbon Dioxide Level 16L, Anion Gap 11, Blood Urea Nitrogen 43H, Creatinine 2.1H, Estimat Glomerular Filtration Rate , Glucose Level 72#L, Hemoglobin A1c 6.6H, Calcium Level 7.9L, Total Bilirubin 0.6, Aspartate Amino Transf (AST/SGOT) 21, Alanine Aminotransferase (ALT/SGPT) 12, Alkaline Phosphatase 99, C-Reactive Protein, Quantitative < 0.4, Total Protein 6.9, Albumin 3.1L, Globulin 3.8, Albumin/Globulin Ratio 0.8L, Triglycerides Level 54 , Cholesterol Level 82, LDL Cholesterol 35, HDL Cholesterol 42, Cholesterol/HDL Ratio 2.0L, Thyroid Stimulating Hormone (TSH) 5.215H 11/09/17 06:40: White Blood Count 5.3, Red Blood Count 2.93L, Hemoglobin 9.4L, Hematocrit 28.4L , Mean Corpuscular Volume 97, Mean Corpuscular Hemoglobin 32.2H, Mean Corpuscular Hemoglobin Concent 33.1, Red Cell Distribution Width 13.3, Platelet Count 152, Mean Platelet Volume 6.3L, Neutrophils (%) (Auto) 54.8, Lymphocytes ( %) (Auto) 28.5, Monocytes (%) (Auto) 9.6, Eosinophils (%) (Auto) 5.8H, Basophils (%) (Auto) 1.3, Sodium Level 136, Potassium Level 5.0, Chloride Level 109H, Carbon Dioxide Level 18L, Anion Gap 9, Blood Urea Nitrogen 39H, Creatinine 2.1H, Estimat Glomerular Filtration Rate , Glucose Level 97, Calcium Level 7.7L, Total Bilirubin 0.6, Aspartate Amino Transf (AST/SGOT) 18, Alanine Aminotransferase (ALT/SGPT) 14, Alkaline Phosphatase 88, Total Protein 6.3L, Albumin 2.6L, Globulin 3.7, Albumin/Globulin Ratio 0.7L, Thyroid Stimulating Hormone (TSH) 6.278H, Uric Acid 5.3, Phosphorus Level 4.6, Magnesium Level 2.0, Pro-B-Type Natriuretic Peptide 6101H, Free Thyroxine 1.19 Height (Feet): 5 Height (Inches): 1.00 Weight (Pounds): 127 General Appearance: no apparent distress Cardiovascular: regular rhythm Respiratory/Chest: decreased breath sounds Abdomen: soft, distended Objective no other change LARA WILSON Nov 09, 2017 11:16
--- NOTE | 2017-11-09 11:54 | Pulmonology Progress Note ---
Assessment/Plan Problems: (1) Acute on chronic renal failure (2) Anemia (3) ATN (acute tubular necrosis) (4) Diabetic nephropathy (5) Elevated CEA Assessment/Plan respiratory treatment IV fluids check electrolytes prbc prn sliding scale f/u renal recommendatins dvt prophyalxis/ Subjective ROS Limited/Unobtainable: No Constitutional: Reports: no symptoms HEENT: Repors: no symptoms Allergies: Coded Allergies: No Known Allergies (Unverified , 05/29/13) Objective Last 24 Hour Vital Signs Date Time Temp Pulse Resp B/P (MAP) Pulse Ox O2 Delivery O2 Flow Rate FiO2 11/09/17 08:23 64 153/70 11/09/17 08:00 97.9 64 20 153/70 98 Room Air 11/09/17 08:00 60 11/09/17 07:50 62 18 Room Air 21 11/09/17 07:10 61 18 Room Air 21 11/09/17 04:21 161/77 11/09/17 04:00 98.2 88 20 161/77 97 Room Air 11/09/17 04:00 64 11/09/17 00:00 64 11/09/17 00:00 98.1 89 18 150/70 97 Room Air 11/08/17 21:40 166/74 11/08/17 20:00 77 11/08/17 20:00 98.2 77 20 166/74 96 Room Air 11/08/17 19:30 80 20 Room Air 21 11/08/17 17:52 82 165/72 11/08/17 16:00 98.4 82 18 165/75 96 Room Air 11/08/17 16:00 76 11/08/17 12:00 77 11/08/17 12:00 98.2 74 18 154/70 97 Room Air Intake and Output 11/08/17 11/09/17 19:00 07:00 Intake Total 1424 ml Output Total 200 ml 800 ml Balance 1224 ml -800 ml Intake Oral 240 ml IV Total 1184 ml Output Urine Total 200 ml 800 ml Objective General Appearance: WD/WN Lines, tubes and drains: peripheral HEENT: normocephalic, atraumatic Neck: non-tender, normal alignment Respiratory/Chest: chest wall non-tender, lungs clear Breasts: no masses Cardiovascular/Chest: normal peripheral pulses, normal rate Abdomen: normal bowel sounds, soft Genitourinary/Rectal: normal genital exam Extremities: normal range of motion Neurologic: health promotion coordinator II-XII grossly normal Microbiology Date/Time Source Procedure Growth Status 11/08/17 12:20 Urine,Clean Catch Urine Culture - Preliminary Gram Negative Bacillus 1 Resulted Laboratory Tests 11/08/17 12:20: Urine Color Pale yellow, Urine Appearance Slightly cloudy, Urine pH 6.5, Urine Specific [place] 1.010, Urine Protein 3+H, Urine Glucose (UA) Negative, Urine Ketones Negative, Urine Occult Blood 3+H, Urine Nitrite Negative, Urine Bilirubin Negative, Urine Urobilinogen Normal, Urine Leukocyte Esterase 2+H, Urine RBC 10-15H, Urine WBC 20-30H, Urine Squamous Epithelial Cells Few, Urine Bacteria ManyH, Urine Random Sodium 55 11/08/17 15:51: White Blood Count 6.0, Red Blood Count 2.92L, Hemoglobin 9.7#L, Hematocrit 28.1L , Mean Corpuscular Volume 96, Mean Corpuscular Hemoglobin 33.2H, Mean Corpuscular Hemoglobin Concent 34.5, Red Cell Distribution Width 13.0, Platelet Count 132L, Mean Platelet Volume 7.3, Neutrophils (%) (Auto) 58.2, Lymphocytes ( %) (Auto) 26.6, Monocytes (%) (Auto) 8.5, Eosinophils (%) (Auto) 4.9H, Basophils (%) (Auto) 1.8, Sodium Level 134L, Potassium Level 5.4H, Chloride Level 107, Carbon Dioxide Level 16L, Anion Gap 11, Blood Urea Nitrogen 43H, Creatinine 2.1H, Estimat Glomerular Filtration Rate , Glucose Level 72#L, Hemoglobin A1c 6.6H, Calcium Level 7.9L, Total Bilirubin 0.6, Aspartate Amino Transf (AST/SGOT) 21, Alanine Aminotransferase (ALT/SGPT) 12, Alkaline Phosphatase 99, C-Reactive Protein, Quantitative < 0.4, Total Protein 6.9, Albumin 3.1L, Globulin 3.8, Albumin/Globulin Ratio 0.8L, Triglycerides Level 54 , Cholesterol Level 82, LDL Cholesterol 35, HDL Cholesterol 42, Cholesterol/HDL Ratio 2.0L, Thyroid Stimulating Hormone (TSH) 5.215H 11/09/17 06:40: White Blood Count 5.3, Red Blood Count 2.93L, Hemoglobin 9.4L, Hematocrit 28.4L , Mean Corpuscular Volume 97, Mean Corpuscular Hemoglobin 32.2H, Mean Corpuscular Hemoglobin Concent 33.1, Red Cell Distribution Width 13.3, Platelet Count 152, Mean Platelet Volume 6.3L, Neutrophils (%) (Auto) 54.8, Lymphocytes ( %) (Auto) 28.5, Monocytes (%) (Auto) 9.6, Eosinophils (%) (Auto) 5.8H, Basophils (%) (Auto) 1.3, Sodium Level 136, Potassium Level 5.0, Chloride Level 109H, Carbon Dioxide Level 18L, Anion Gap 9, Blood Urea Nitrogen 39H, Creatinine 2.1H, Estimat Glomerular Filtration Rate , Glucose Level 97, Calcium Level 7.7L, Total Bilirubin 0.6, Aspartate Amino Transf (AST/SGOT) 18, Alanine Aminotransferase (ALT/SGPT) 14, Alkaline Phosphatase 88, Total Protein 6.3L, Albumin 2.6L, Globulin 3.7, Albumin/Globulin Ratio 0.7L, Thyroid Stimulating Hormone (TSH) 6.278H, Uric Acid 5.3, Phosphorus Level 4.6, Magnesium Level 2.0, Pro-B-Type Natriuretic Peptide 6101H, Vitamin B12 Level [Pending], Folate [ Pending], Free Thyroxine 1.19 Current Medications Medications (Trade) Dose Ordered Sig/Murali Route PRN Reason Start Time Stop Time Status Last Admin Dose Admin Acetaminophen (Tylenol) 650 mg Q4H PRN ORAL fever 11/07/17 22:45 12/07/17 22:44 Albuterol/ Ipratropium (Albuterol/ Ipratropium) 3 ml Q6HRT PRN HHN dyspnea 11/07/17 22:45 11/12/17 22:44 Amlodipine Besylate (Norvasc) 5 mg BID ORAL 11/08/17 09:00 12/08/17 08:59 11/09/17 08:23 Aspirin (ASA) 81 mg DAILY ORAL 11/08/17 09:00 12/08/17 08:59 11/09/17 08:23 Clonidine HCl (Catapres Tab) 0.1 mg Q4H PRN ORAL For High Blood Pressure 11/07/17 22:45 12/07/17 22:44 11/09/17 04:21 Dextrose (Dextrose 50%) STAT PRN IV Hypoglycemia 11/07/17 22:45 12/07/17 22:44 Ergocalciferol (Drisdol) 50,000 intlu QWEEK ORAL 11/09/17 11:15 12/09/17 11:14 UNV Heparin Sodium (Porcine) (Heparin 5000 units/ml) 5,000 units EVERY 12 HOURS SUBQ 11/08/17 09:00 12/08/17 08:59 11/09/17 08:24 Insulin Aspart (NovoLOG) BEFORE MEALS AND HS SUBQ 11/08/17 06:30 12/08/17 06:29 11/09/17 11:15 Lansoprazole (Prevacid) 30 mg DAILY ORAL 11/08/17 12:30 12/08/17 12:29 11/09/17 08:23 Morphine Sulfate (Morphine Sulfate) 1 mg EVERY 4 HOURS PRN IVP For Pain 11/07/17 22:45 11/14/17 22:44 Ondansetron HCl (Zofran) 4 mg Q6H PRN IVP Nausea & Vomiting 11/07/17 22:45 12/07/17 22:44 Polyethylene Glycol (Miralax) 17 gm HSPRN PRN ORAL Constipation 11/07/17 22:45 12/07/17 22:44 Sitagliptin Phosphate (Januvia) 50 mg ACBREAKFAST ORAL 11/08/17 06:30 12/08/17 06:29 11/09/17 06:28 Zolpidem Tartrate (Ambien) 5 mg HSPRN PRN ORAL Insomnia 11/07/17 22:45 11/14/17 22:44 JM COLON Nov 09, 2017 11:54
[2017-11-09 12:00] VITALS: BP 152/59
[2017-11-09] MEDS ORDERED: Vitamin D 50,000 units cap ORAL SCH (14:00)
[2017-11-09 16:00] VITALS: BP 160/61
[2017-11-09 20:00] VITALS: BP 155/54
[2017-11-10] VITALS: BP 156/70
[2017-11-10 04:00] VITALS: BP 148/76
[2017-11-10] MEDS: sitaGLIPtin 50mg tab ORAL SCH (06:34)
[2017-11-10] MEDS: NovoLOG Insulin Flexpen SUBQ SCH ×2 (06:36→10:50)
[2017-11-10 08:00] VITALS: BP 168/72
[2017-11-10] MEDS: Aspirin Baby 81mg ORAL SCH (08:40)
[2017-11-10] MEDS: Heparin 5000 units/ml inj SUBQ SCH (08:51)
--- NOTE | 2017-11-10 11:14 | Nephrology Progress Note ---
Assessment/Plan Problem List: (1) Diabetic nephropathy (2) Acute kidney injury superimposed on CKD (3) Hypoalbuminemia (4) Anemia Assessment Status: Diabetic nephropathy CKD , Cr 1.9 .....(2 years ago) Cr stable 2.1 HTN (hypertension) Sever Anemia Acute on chronic renal failure HypoNatremia improved . Plan no labs today- add lopressor adjust bp meds Sims 2D echo noted Kidney ALESSANDRA noted urine studies- avoid Nephrotoxics Monitor renal parameters Subjective ROS Limited/Unobtainable: No Constitutional: Reports: malaise Objective Objective Last 24 Hour Vital Signs Date Time Temp Pulse Resp B/P (MAP) Pulse Ox O2 Delivery O2 Flow Rate FiO2 11/10/17 10:18 66 20 Room Air 21 11/10/17 08:40 80 168/72 11/10/17 08:00 97.9 80 18 168/72 96 Room Air 11/10/17 08:00 77 11/10/17 04:00 79 11/10/17 04:00 98.2 78 20 148/76 96 Room Air 11/10/17 00:00 97.7 74 22 156/70 96 Room Air 11/10/17 00:00 71 11/09/17 20:00 98.0 88 18 155/54 96 Room Air 11/09/17 20:00 57 11/09/17 17:07 61 160/61 11/09/17 16:00 57 11/09/17 16:00 97.9 66 20 160/61 99 Room Air 11/09/17 12:00 97.9 66 20 152/59 96 Room Air 11/09/17 12:00 58 Intake and Output 11/09/17 11/10/17 19:00 07:00 Intake Total 708 ml Output Total 950 ml 500 ml Balance -242 ml -500 ml Intake Oral 708 ml Output Urine Total 950 ml 500 ml Height (Feet): 5 Height (Inches): 1.00 Weight (Pounds): 127 General Appearance: no apparent distress Cardiovascular: normal rate Respiratory/Chest: decreased breath sounds Objective no other change LARA WILSON Nov 10, 2017 11:14
[2017-11-10] MEDS ORDERED: HydrALAZINE 25mg tab ORAL PRN (11:15)
[2017-11-10] MEDS ORDERED: Metoprolol Tartrate 12.5mg TAB ORAL ONE (11:33)
[2017-11-10 12:00] VITALS: BP 159/68
[2017-11-10 12:30] VITALS: BP 159/68
[2017-11-10] MEDS ORDERED: Metoprolol Tartrate 12.5mg TAB ORAL SCH (21:00)
--- NOTE | 2017-11-12 12:49 | Discharge Summary ---
Discharge Summary Hospital Course Date of Admission Nov 08, 2017 at 00:20 Date of Discharge Nov 10, 2017 at 12:59 Admitting Diagnosis anemia, hyperkalemia HPI Stacy Hudson is a 82 year old female who was admitted on Nov 08, 2017 at 00:20 for Anemia, Hyperkalemia Hospital Course [id number] Discharge Discharge Disposition Patient was discharged to Home with Home Health(06) Discharge Diagnoses: Lisbet Schumacher NP Nov 12, 2017 12:49
--- NOTE | 2017-11-12 22:31 | Discharge Summary 2 SIG ---
DATE OF ADMISSION: 11/08/2017 DATE OF DISCHARGE: 11/10/2017 CONSULTANTS: 1. Masood Speulveda M.D. 2. Solo Lombardi M.D. BRIEF HOSPITAL COURSE: The patient is an 82-year-old female with history of hypertension and diabetes mellitus, who presented to ED for evaluation of abnormal laboratories. The patient had blood work done by PMD that showed her hemoglobin was low and potassium was high. On evaluation at ED, blood work showed potassium level of 6.0, hemoglobin was 7, hematocrit 21.7, and creatinine was elevated to 2.4. She was given insulin with D50. There was no EKG changes seen on EKG regarding calcium. She was then admitted for evaluation of hyperkalemia and acute anemia with renal failure. She was given two units packed RBC blood transfusion. Renal ultrasound showed no hydronephrosis with small-appearing kidneys. The patient has diabetes with diabetic nephropathy. Glucose was likewise elevated and as outpatient has been on Tradjenta and glimepiride. Her blood sugars were monitored. Sulfonylurea was discontinued. She was given Januvia 50 mg renally dosed. Creatinine had been stable. Potassium normalized. Lopressor was added for blood pressure control. The patient was eventually discharged home with home health. FINAL DIAGNOSES: 1. Acute on chronic renal failure. 2. Acute anemia requiring blood transfusion. 3. Acute tubular necrosis. 4. Diabetes with diabetic nephropathy. 5. Elevated carcinoembryonic antigen. 6. Urinary tract infection with Klebsiella. 7. Hyponatremia, improved. 8. Hypertension. DISPOSITION: The patient was discharged home with home health. DISCHARGE MEDICATIONS: Refer to medication list. DISCHARGE INSTRUCTIONS: Follow up with PMD in a week. Flora Stevens M.D. I have been assigned to dictate discharge summary on this account and I was not involved in the patient's management. Lisbet Schumacher N.P. DR: LAMAR JOB#: [id number] CC:
--- NOTE | 2017-11-13 14:51 | Cardiology Report ---
APPROVED REPORT EKG Measurement Heart [id number] Normal sinus rhythm Normal ECG
== END 2017-11-10 12:59 | disposition home health service (06) | DRG 683 ==
LOC: EMR 22:00 → 2E 11-08 00:20 → EDBEDREQ 11-08 00:28 → 2E 11-08 03:39
PROC: 30233N1 Transfusion of Nonautologous Red Blood Cells into Peripheral Vein, Percutaneous Approach (ICD-10-PCS; principal; 2017-11-08)
DX: N17.0 Acute kidney failure with tubular necrosis (principal); E87.1 Hypo-osmolality and hyponatremia; E11.22 Type 2 diabetes mellitus with diabetic chronic kidney disease; N39.0 Urinary tract infection, site not specified; I12.9 Hypertensive chronic kidney disease with stage 1 through stage 4 chronic kidney disease, or unspecified chronic kidney disease; D64.89 Other specified anemias; N18.9 Chronic kidney disease, unspecified; E87.5 Hyperkalemia; R97.0 Elevated carcinoembryonic antigen [CEA]; B96.1 Klebsiella pneumoniae [K. pneumoniae] as the cause of diseases classified elsewhere; Z79.84 Long term (current) use of oral hypoglycemic drugs
CPT/HCPCS: 36415; 71045; 76775; 80053; 80061; 81001; 81050; 82550; 82553; 82607; 82746; 82962; 83036; 83735; 83880; 84100; 84156; 84300; 84439; 84443; 84484; 84550; 85007; 85025; 85610; 85730; 86140; 86850; 86900; 86901; 86920; 87086; 87181; 93005; 93306; 94664; 99285; J1815